=== PATIENT | female | born 1960 | race Caucasian/White ===

== ENCOUNTER 2016-10-16 19:57 | Emergency (ER) | payer BC ==
[2016-10-16 20:07] VITALS: BP 110/70
--- NOTE | 2016-10-16 20:31 | UC ---
Bite Injury/Animal HPI - HPI Summary HPI Summary: Pt presents to the ED through amb triage. Pt states this afternoon was working out side when sustained a bite or sting to the posterior aspect of right knee. Pt states felt like it became swollen and full. Pt denies pain. mild warmth. Pt wondering if wound represents Lyme dx. Pt not immunocompromised Pt states with time edema has improved * - History of Current Complaint Chief Complaint: UCSkin Stated Complaint: INSECT BITE Time Seen by Provider: 10/16/16 20:05 Hx Last Menstrual Period: 10/13/16 ?: No Severity Currently: Mild Severity Initially: Mild Pain Intensity: 0 Onset/Duration: Gradual Onset - Allergies/Home Medications Allergies/Adverse Reactions: Allergies Allergy/AdvReac Type Severity Reaction Status Date / Time Codeine AdvReac Mild makes pain Verified 10/16/16 20:07 worse PMH/Surg Hx/FS Hx/Imm Hx Previously Healthy: Yes - Surgical History Surgical History: Yes Surgery Procedure, Year, and Place: x3; R lower leg; tubal ligation; hernia; LUMBAR SPINE FEB 2014; - Family History Known Family History: Positive: Diabetes - Social History Lives: With Family Alcohol Use: None Substance Use Type: None Smoking Status (MU): Never Smoked Tobacco - Immunization History Most Recent Influenza Vaccination: never Most Recent Tetanus Shot: UTD Most Recent Pneumonia Vaccination: never Review of Systems Skin: Rash All Other Systems Reviewed And Are Negative: Yes Physical Exam Triage Information Reviewed: Yes Appearance: Well-Appearing, No Pain Distress, Well-Nourished Vital Signs: Initial Vital Signs Temp 98 F 10/16/16 20:02 Pulse 58 10/16/16 20:02 Resp 16 10/16/16 20:02 BP 110/70 10/16/16 20:02 Pulse Ox 97 10/16/16 20:02 Eyes: Negative: Discharge ENT: Positive: Hearing grossly normal Neck exam: Normal Neck: Positive: Supple, Nontender, No Lymphadenopathy Respiratory Exam: Normal Respiratory: Positive: Normal breath sounds, No respiratory distress, No accessory muscle use Cardiovascular Exam: Normal Cardiovascular: Positive: RRR, Other: - 2+ popliteal fossa Musculoskeletal Exam: Normal Musculoskeletal: Positive: Other: - ambulatory without difficulty or weakness Full flex/ext knee, ankle + great toe extension Neurological Exam: Normal Neurological: Positive: Alert Psychological Exam: Normal Skin: Positive: Other - right popliteal fossa - pt with small wound c/w insect sting and mild localized edema. mild warmth no erythema no extension to calf no pain Bite Injury Course/Dx - Course Course Of Treatment: Pt with insect wound to right popliteal fossa this afternoon with localized edema. No fb appreciated. d/w pt regarding lyme, tick bite. no current concern for infection. recommend cool pack. elevate. monitor wound for s/s infection. return precautions - Differential Dx/Diagnosis Provider Diagnoses: insect sting with localized edema and warmth. no concern for infection. d/w pt at length regarding lyme disease - no current concern for tick wound or infection. d/w pt wound care s/s infection. elevate. cool packs. elevate Discharge - Discharge Plan Condition: Stable Disposition: HOME Patient Education Materials: Insect Bite or Sting (ED) Referrals: Antonia Soler MD [Primary Care Provider] - Additional Instructions: The doctor that evaluated you today thinks you are have a normal, location reaction to an insect bite or sting. There is nothing on today's exam that is concerning for infection or tick bite. However, you should monitor your wound closely for signs of infection - reddness, red streaking drainage, increased pain ,swelling or fever Okay to apply cool soaks to your wound. Heat may increase swelling and may cause itching Elevate your leg to help with swelling and pain Call your doctor or return with questions or concerns
== END 2016-10-16 20:28 | disposition home or self-care (01) ==
LOC: UCCORT 19:57
DX: S80.261A Insect bite (nonvenomous), right knee, initial encounter (principal); W57.XXXA Bitten or stung by nonvenomous insect and other nonvenomous arthropods, initial encounter; Y93.89 Activity, other specified; Y92.9 Unspecified place or not applicable; Z88.5 Allergy status to narcotic agent
CPT/HCPCS: 99211; G0463

== ENCOUNTER 2017-05-13 07:39 | Emergency (ER) | payer BC ==
[2017-05-13 08:05] VITALS: BP 123/73
--- NOTE | 2017-05-13 08:13 | UC ---
Bite Injury/Animal HPI - HPI Summary HPI Summary: TICK BITE RIGHT UPPER ARM X 1 DAY TICK WAS REMOVED BY THE PT. THIS MORNING NO FEVER, NO CHILLS, NO JOINT PAIN , NO RASH - History of Current Complaint Chief Complaint: UCSkin Stated Complaint: SKIN COMPLAINT - RT ARM Time Seen by Provider: 05/13/17 07:57 Hx Obtained From: Patient Hx Last Menstrual Period: 10/13/16 Severity Currently: Mild Severity Initially: Mild Pain Intensity: 0 Onset/Duration: Gradual Onset, Lasting Days - 1, Still Present Type of Bite: Wild Animal - TICK Has Animal Been Immunized?: N/A Associated Signs And Symptoms: Negative: Fever, Erythema, Drainage, Swelling, Lymphadenopathy, Numbness/Tingling, Limited ROM Animal Available for Observation: Yes Animal Control Notified: No - Allergies/Home Medications Allergies/Adverse Reactions: Allergies Allergy/AdvReac Type Severity Reaction Status Date / Time codeine AdvReac Unknown NOT Verified 05/13/17 07:56 EFFECTIVE PMH/Surg Hx/FS Hx/Imm Hx Previously Healthy: Yes - Surgical History Surgical History: Yes Surgery Procedure, Year, and Place: x3; R lower leg; tubal ligation; hernia; LUMBAR SPINE FEB 2014;. RIGHT LEG REMOVED PART OF ADAMES - Family History Known Family History: Positive: Diabetes - Social History Alcohol Use: None Substance Use Type: None Smoking Status (MU): Never Smoked Tobacco - Immunization History Most Recent Influenza Vaccination: never Most Recent Tetanus Shot: UTD Most Recent Pneumonia Vaccination: never Review of Systems Constitutional: Negative Eyes: Negative ENT: Negative Respiratory: Negative Is Patient Immunocompromised?: No All Other Systems Reviewed And Are Negative: Yes Physical Exam Triage Information Reviewed: Yes Appearance: Well-Appearing, No Pain Distress, Well-Nourished Vital Signs: Initial Vital Signs Temp 98.2 F 05/13/17 07:57 Pulse 72 05/13/17 07:57 Resp 16 05/13/17 07:57 BP 123/73 05/13/17 07:57 Pulse Ox 100 05/13/17 07:57 Vital Signs Reviewed: Yes Eyes: Positive: Conjunctiva Clear ENT: Positive: Normal ENT inspection, Hearing grossly normal, Pharynx normal Neck exam: Normal Neck: Positive: Supple Respiratory: Positive: Chest non-tender, Lungs clear, Normal breath sounds Cardiovascular: Positive: RRR, No Murmur, Pulses Normal Skin: Positive: Other - TICK BITE RIGHT UPPER ARM , TICK WAS REMOVED BY THE PT. MILD ERYTHEMA OF THE TICK SITE Bite Injury Course/Dx - Differential Dx/Diagnosis Provider Diagnoses: TICK BITE RIGHT ARM Discharge - Discharge Plan Condition: Stable Disposition: HOME Prescriptions: DOXYcycline CAP(*) [DOXYcycline 100MG CAP(*)] 200 mg PO DAILY #2 cap Patient Education Materials: Tick Bite (ED) Referrals: Antonia Soler MD [Primary Care Provider] - If Needed
== END 2017-05-13 08:14 | disposition home or self-care (01) ==
LOC: UCCORT 07:39
DX: S40.861A Insect bite (nonvenomous) of right upper arm, initial encounter (principal); W57.XXXA Bitten or stung by nonvenomous insect and other nonvenomous arthropods, initial encounter; Y93.9 Activity, unspecified; Y92.9 Unspecified place or not applicable
CPT/HCPCS: 99212; G0463

== ENCOUNTER 2017-09-22 15:28 | Emergency (ER) | payer BC ==
[2017-09-22 15:44] VITALS: BP 146/83
--- NOTE | 2017-09-22 16:00 | ED ---
Respiratory - History of Current Complaint Chief Complaint: UCBackPain Stated Complaint: BACK PAIN - S/P FALL Hx Obtained From: Patient Onset/Duration: Sudden Onset - left sided rib pain, right sided rib pain Timing: Constant Initial Severity: Severe Current Severity: Moderate Pain Intensity: 6 Sputum Amount: None Aggravating Factor(s): Nothing, Deep Breaths Associated Signs and Symptoms: Pleuritic Chest Pain - Risk Factors Status Asthmaticus Risk Factors: Negative Pulmonary Embolism Risk Factors: Negative Cardiac Risk Factors: Negative - Allergy/Home Medications Allergies/Adverse Reactions: Allergies Allergy/AdvReac Type Severity Reaction Status Date / Time codeine AdvReac Unknown NOT Verified 05/13/17 07:56 EFFECTIVE Home Medications: Home Medications Calcium Carb, Citrate/Vit D3 [Calcium + D3 ER Tablet] 1 each PO DAILY 09/22/17 [ History Confirmed 09/22/17] PMH/Surg Hx/FS Hx/Imm Hx Endocrine/Hematology History: Reports: Hx Anemia - CHRONIC Denies: Hx Diabetes Cardiovascular History: Denies: Hx Hypertension, Hx Pacemaker/ICD Respiratory History: Denies: Hx Asthma History: Denies: Hx Renal Disease Musculoskeletal History: Reports: Hx Arthritis - BILAT THUMBS Sensory History: Reports: Hx Contacts or Glasses - READING GLASSES Denies: Hx Hearing Aid Opthamlomology History: Reports: Hx Contacts or Glasses - READING GLASSES Psychiatric History: Denies: Hx Panic Disorder - Surgical History Surgery Procedure, Year, and Place: x3; R lower leg; tubal ligation; hernia; LUMBAR SPINE FEB 2014;. RIGHT LEG REMOVED PART OF ADAMES Hx Anesthesia Reactions: No - TOOK LONG TIME TO WAKE UP Infectious Disease History: No Infectious Disease History: Reports: History Other Infectious Disease - CHICKEN POX, Traveled Outside the [place] in Last 30 Days - [place] - Family History Known Family History: Positive: Diabetes - Social History Alcohol Use: None Substance Use Type: Reports: None Smoking Status (MU): Never Smoked Tobacco Review of Systems Constitutional: Negative Eyes: Negative ENT: Negative Cardiovascular: Negative Respiratory: Other - left and right pleuritic pain Gastrointestinal: Negative Genitourinary: Negative Musculoskeletal: Other - pain in the left and right chest Skin: Negative Neurological: Negative Psychological: Normal All Other Systems Reviewed And Are Negative: Yes Physical Exam Triage Information Reviewed: Yes Vital Signs On Initial Exam: Initial Vitals Temp Pulse Resp BP Pulse Ox 36.9 C 69 16 146/83 100 09/22/17 15:40 09/22/17 15:40 09/22/17 15:40 09/22/17 15:40 09/22/17 15:40 Vital Signs Reviewed: Yes Appearance: Positive: Well-Appearing Skin: Positive: Warm - no ecchymosis Head/Face: Positive: Normal Head/Face Inspection Eyes: Positive: Normal ENT: Positive: Normal ENT inspection Neck: Positive: Supple Respiratory/Lung Sounds: Positive: Clear to Auscultation Cardiovascular: Positive: Normal Abdomen Description: Positive: Nontender Bowel Sounds: Positive: Present Neurological: Positive: Normal Diagnostics - Vital Signs Vital Signs Temp Pulse Resp BP Pulse Ox 09/22/17 15:40 36.9 C 69 16 146/83 100 - Laboratory Lab Statement: Any lab studies that have been ordered have been reviewed, and results considered in the medical decision making process. Disposition - Course Course Of Treatment: left and right chest trauma - Diagnoses Provider Diagnoses: Rib injury During the Visit The Following Alert/Code Occurred: Trauma Is Visit Related: No Discharge - Sign-Out/Discharge Documenting (check all that apply): Patient Departure - Discharge Plan Condition: Good Disposition: HOME Patient Education Materials: Rib Fracture (ED) Referrals: Antonia Soler MD [Primary Care Provider] - - Billing Disposition and Condition Condition: GOOD Disposition: Home
--- NOTE | 2017-09-22 16:25 | RAD ---
INDICATION: Bilateral rib pain COMPARISON: None TECHNIQUE: Multiple views of the ribs were obtained. FINDINGS: Bones: There is no evidence of acute rib fracture. LUNGS: The lungs are clear. There is no pneumothorax. Pleural spaces: There is no evidence of hemothorax. Other: None IMPRESSION: NO ACUTE RIB FRACTURE.
== END 2017-09-22 17:04 | disposition home or self-care (01) ==
LOC: UCCORT 15:28
DX: S29.9XXA Unspecified injury of thorax, initial encounter (principal); W18.00XA Striking against unspecified object with subsequent fall, initial encounter; Y93.9 Activity, unspecified; Y92.9 Unspecified place or not applicable; Z88.5 Allergy status to narcotic agent; Z83.3 Family history of diabetes mellitus
CPT/HCPCS: 71111; 99201; G0463

== ENCOUNTER 2017-10-21 20:52 | Emergency (ER) | payer BC ==
--- OUTSIDE RECORDS SUMMARY | 2017-10-21 21:08 | XMS REPORT ---
:[address] [facility] Address [address] [place] [address] Care Team Providers Name Role Phone Narda Echeverria Unavailable Unavailable PROBLEMS Type Condition ICD9-CM Code [id number] Onset Condition SNOMED Code Code Dates Status Problem Abnormal findings R93.8 Active 130038092 on diagnostic imaging of other specified body structures Problem Deep dyspareunia N94.12 Active 468665900 Problem Irregular N92.6 Active 13181914 menstruation, unspecified Problem Postmenopausal N95.0 Active 11847169 bleeding Problem Leiomyoma of D25.9 Active 51185571 uterus, unspecified ALLERGIES Substance Reaction Event Type Date Status codeine doesn't work Drug Allergy Oct, Active ENCOUNTERS Encounter Location Date Diagnosis [facility] [address] Oct, OBGYN [place], [place] [id number] [facility] Oct, Leiomyoma of uterus, OBGYN [facility], unspecified D25.9 ; [place] [id number] Abnormal findings on diagnostic imaging of other specified body structures R93.8 and Encounter for screening mammogram for malignant neoplasm of breast Z12.31 [facility] 103 Oct, Leiomyoma of uterus, OBGYN [facility], unspecified D25.9 and [place] [id number] Postmenopausal bleeding N95.0 [facility] 103 Jun, Postmenopausal bleeding OBN [facility], N95.0 ; Leiomyoma of [place] [id number] uterus, unspecified D25.9 and Abnormal findings on diagnostic imaging of other specified body structures R93.8 [facility] 103 Jun, Postmenopausal bleeding OBN [facility], N95.0 ; Deep dyspareunia [place] [id number] N94.12 and Leiomyoma of uterus, unspecified D25.9 [facility] [address] Nov, OBGYN [place], [place] [id number] [facility] 103 Nov, Postmenopausal bleeding OBN [facility], N95.0 ; [place]omy[place] [id number] uterus, unspecified D25.9 and Deep dyspareunia N94.12 [facility] 103 Aug, Hematuria, unspecified OBGYN [facility], R31.9 [place] [id number] [facility] [address] Aug, OBGYN [place] [id number] [facility] 103 Aug, Postmenopausal bleeding OBN [facility], N95.0 ; [place]omy[place] [id number] uterus, unspecified D25.9 and Deep dyspareunia N94.12 [facility] [address], July, [facility] [place] [id number] [facility] [address] July, OBGYN [place] [id number] [facility] [address] July, Postmenopausal bleeding OBN [facility], N95.0 ; [place] [id number] uterus, unspecified D25.9 and Deep dyspareunia N94.12 [facility] [address] Jun, OBGYN [place], [place] [id number] [facility] 103 Jun, Postmenopausal bleeding OBN [facility], N95.0 ; [place] [id number] uterus, unspecified D25.9 and Deep dyspareunia N94.12 [facility] [address] May, [place]BGYN [place], [place] [id number] [facility] 103 May, Irregular menstruation, OBGYN [facility], unspecified N92.6 [place] [id number] [facility] [address] [facility] May, Irregular menstruation , [address] [place], unspecified N92.6 [place] [id number] [facility] [address] May, Irregular menstruation, OBGYN [facility], unspecified N92.6 ; [place] [id number] Abnormal findings on diagnostic imaging of other specified body structures R93.8 and Superficial (introital) dyspareunia N94.11 [facility] 103 May, OBGYN [place], [place] [id number] [facility] 103 May, Irregular menstruation, OBGYN [facility], unspecified N92.6 ; [place] [id number] Superficial (introital) dyspareunia N94.11 and Abnormal findings on diagnostic imaging of other specified body structures R93.8 [facility] 103 Feb, OBGYN [place], [place] [id number] [facility] 103 Feb, [place]BGYN [place] [id number] [facility] 103 Jan, [place] [id number] [facility] Dec, [place] [id number] [facility] 103 Dec, [place] [id number] [facility] [address] [place], Dec, [place] [id number] [facility] 103 Dec, FAMILY PLANNING V25.09 [place]BGYN [place] [id number] [facility] 103 Nov, FAMILY PLANNING V25.09 and OBGYN [facility], PELVIC PAIN 625.9 [place] [id number] [place] [facility] 103 Nov, FAMILY PLANNING V25.09 [place]BGYN [place] [id number] [facility] 103 Oct, FAMILY PLANNING V25.09 [place]BGYN [place] [id number] IMMUNIZATIONS No Known Immunizations SOCIAL HISTORY Never Assessed REASON FOR REFERRAL FUNCTIONAL STATUS PLAN OF CARE Activity Details Follow Up 6 Months annual, screening mammo Reason: Pending Test Mammogram, Routine Screening - bilateral VITAL SIGNS Height 62 in 2017-10-19 Weight 174 lbs 2017-10-19 BMI 31.82 kg/m2 2017-10-19 Blood pressure systolic 126 mm Hg 2017-10-19 Blood pressure diastolic 72 mm Hg 2017-10-19 MEDICATIONS Medication Instructions Dosage Frequency Start End Duration Status Date Date Vitamin D3 23302 orally once a 1 cap(s) Active intl units week vitamin E 200 orally once a 1 cap(s) 24h Active intl units day iron Active multivitamin as directed Active calcium 500 mg orally 3 x per Active week PROCEDURES No Known procedures RESULTS No Results REASON FOR VISIT u/s f/u MEDICAL (GENERAL) HISTORY Type Description Date Medical History anemia Medical History Asthma Medical History Anxiety Surgical History benign tumor removed right feliciano 1979 Surgical History post op laparoscopic bilateral partial salpingectomy 2007 Surgical History laproscopic surgery with mesh with Dr. Zhong ? Surgical History Hysteroscopy/D&C/myomectomy: benign EM tissue and 08-06-16 leiomyoma Hospitalization History see above
[2017-10-21 21:13] VITALS: BP 146/91
--- NOTE | 2017-10-21 22:04 | UC ---
Truncal Trauma HPI - HPI Summary HPI Summary: fall onto right side with arm caught under chest wall on 10/17/17. Pain not remitting and is disrupting sleep, hard to breathe. Has not used analgesics as she dislikes taking meds. - History Of Current Complaint Chief Complaint: UCTrauma Stated Complaint: RIGHT SIDED RIB PAIN Time Seen by Provider: 10/21/17 21:53 Hx Obtained From: Patient Hx Last Menstrual Period: 10/13/16 Onset/Duration: Sudden Onset Severity Initially: Moderate Severity Currently: Moderate Pain Intensity: 7 Mechanism Of Injury: Blunt Trauma Aggravating Factor(s): Movement, Deep Breathing, Cough Alleviating factor(s): Rest Associated Signs And Symptoms: Positive: SOB, Chest Pain - Allergies/Home Medications Allergies/Adverse Reactions: Allergies Allergy/AdvReac Type Severity Reaction Status Date / Time codeine AdvReac Unknown NOT Verified 10/21/17 21:13 EFFECTIVE Home Medications: Home Medications Cholecalciferol (Vitamin D3) [Vitamin D3] 1,000 unit PO DAILY 10/21/17 [History Confirmed 10/21/17] PMH/Surg Hx/FS Hx/Imm Hx Previously Healthy: Yes - overweight - Surgical History Surgical History: Yes Surgery Procedure, Year, and Place: x3; R lower leg; tubal ligation; hernia; LUMBAR SPINE FEB 2014;. RIGHT LEG REMOVED PART OF ADAMES - Family History Known Family History: Positive: Diabetes - Social History Occupation: Employed Full-time Lives: With Family Alcohol Use: None Substance Use Type: None Smoking Status (MU): Never Smoked Tobacco - Immunization History Most Recent Influenza Vaccination: never Most Recent Tetanus Shot: UTD Most Recent Pneumonia Vaccination: never Review of Systems Constitutional: Negative Skin: Negative Eyes: Negative ENT: Negative Respiratory: Shortness Of Breath Cardiovascular: Chest Pain Gastrointestinal: Negative Genitourinary: Negative Motor: Negative Neurovascular: Negative Musculoskeletal: Negative Neurological: Negative Psychological: Negative Is Patient Immunocompromised?: No All Other Systems Reviewed And Are Negative: Yes Physical Exam Triage Information Reviewed: Yes Appearance: Well-Appearing, Pain Distress - mild to moderate Vital Signs: Initial Vital Signs Temp 98.1 F 10/21/17 21:09 Pulse 74 10/21/17 21:09 Resp 16 10/21/17 21:09 BP 146/91 10/21/17 21:09 Pulse Ox 97 10/21/17 21:09 Vital Signs Reviewed: Yes ENT: Positive: Pharynx normal Neck: Positive: Supple, Nontender, No Lymphadenopathy Respiratory Exam: Other - tenderness right anterior chest wall, costal margin intact. Respiratory: Positive: Lungs clear, Normal breath sounds Cardiovascular: Positive: RRR, No Murmur Musculoskeletal Exam: Normal Neurological Exam: Normal Psychological Exam: Normal Skin Exam: Normal Diagnostics - Laboratory Diagnostic Studies Completed/Ordered: rib views reviewed by , no fracture seen. Pending radiology read. Truncal Trauma Course/Dx - Course Course Of Treatment: chest wall pain. - Differential Dx/Diagnosis Differential Diagnosis/HQI/PQRI: Chest Wall Contusion Provider Diagnoses: chest wall pain (pending final radiology read) Discharge - Sign-Out/Discharge Documenting (check all that apply): Post-Discharge Follow Up - Discharge Plan Condition: Stable Disposition: HOME Patient Education Materials: Chest Wall Pain (ED) Referrals: Maggie Leonard MD [Primary Care Provider] - Additional Instructions: As reviewed, no fracture was seen by my assessment. The films will be read by a radiologist in the morning and you will be notified if a fracture is seen. You can use acetaminophen or ibuprofen for control of pain. - Billing Disposition and Condition Condition: STABLE Disposition: Home
--- NOTE | 2017-10-22 07:40 | RAD ---
Indication: Right rib injury. 3 views of the right ribs demonstrate no fracture. No dislocation is identified. No pneumothorax is noted. Dual-energy PA views of the chest are unremarkable. IMPRESSION: No fracture of the right ribs is noted. R0
== END 2017-10-21 22:56 | disposition home or self-care (01) ==
LOC: UCCORT 20:52
DX: R07.89 Other chest pain (principal); W19.XXXA Unspecified fall, initial encounter; Y93.9 Activity, unspecified; Y92.9 Unspecified place or not applicable; Y99.9 Unspecified external cause status; Z88.5 Allergy status to narcotic agent
CPT/HCPCS: 99211; G0463

== ENCOUNTER 2018-01-19 15:41 | Emergency (ER) | payer BC ==
[2018-01-19 16:15] VITALS: BP 132/84
--- NOTE | 2018-01-19 16:28 | UC ---
UC General HPI - HPI Summary HPI Summary: PT IS C/O A 2 WEEK HX OF INCREASING PAIN "UNDER MY BELLY FLAP". C/O MORE PAIN WHEN BLADDER IS FULL. DENIES NAUSEA, VOMITING AND DIARRHEA. C/O SOME CONSTIPATION, DESCRIBES THIS STAINING WITH BOWEL MOVEMENTS AND COMES OUT A SOFT THIN STRIP. ADMITS TO ABDOMINAL DISTENSION. NO CHANGE WITH MEALS. NO DYSURIA. LAST PM SO SEVERE THAT "ALMOST WENT TO THE ER". - History of Current Complaint Chief Complaint: UCLowerExtremity Stated Complaint: LOWER LEFT GROIN PAIN Time Seen by Provider: 01/19/18 16:15 Hx Obtained From: Patient Hx Last Menstrual Period: 10/13/16 Onset/Duration: Gradual Onset Timing: Constant Pain Intensity: 7 Aggravating: FULL BLADDER AND MOVEMENT Associated Signs & Symptoms: Positive: Abdominal Pain. Negative: Diarrhea, Fever, Nausea, Vomiting - Allergy/Home Medications Allergies/Adverse Reactions: Allergies Allergy/AdvReac Type Severity Reaction Status Date / Time codeine AdvReac Unknown NOT Verified 01/19/18 16:15 EFFECTIVE Home Medications: Home Medications Aspirin 325 mg PO DAILY 01/19/18 [History Confirmed 01/19/18] PMH/Surg Hx/FS Hx/Imm Hx Previously Healthy: Yes - Surgical History Surgical History: Yes Surgery Procedure, Year, and Place: x3; R lower leg; tubal ligation; hernia; LUMBAR SPINE FEB 2014;. RIGHT LEG REMOVED PART OF ADAMES - Family History Known Family History: Positive: Diabetes, Other - DIVERTICULAR DISEASE - Social History Occupation: Employed Full-time Alcohol Use: None Substance Use Type: None Smoking Status (MU): Never Smoked Tobacco - Immunization History Most Recent Influenza Vaccination: never Most Recent Tetanus Shot: UTD Most Recent Pneumonia Vaccination: never Vaccination Up to Date: Yes Review of Systems Constitutional: Negative Skin: Negative Eyes: Negative ENT: Negative Respiratory: Negative Cardiovascular: Negative Gastrointestinal: Abdominal Pain Genitourinary: Negative Motor: Negative Neurovascular: Negative Musculoskeletal: Negative Neurological: Negative Psychological: Negative Is Patient Immunocompromised?: No All Other Systems Reviewed And Are Negative: Yes Physical Exam Triage Information Reviewed: Yes Appearance: Well-Appearing Vital Signs: Initial Vital Signs Temp 97.9 F 01/19/18 16:10 Pulse 74 01/19/18 16:10 Resp 16 01/19/18 16:10 BP 132/84 01/19/18 16:10 Pulse Ox 99 01/19/18 16:10 Vital Signs Reviewed: Yes Eyes: Positive: Conjunctiva Clear ENT: Positive: Pharynx normal, TMs normal. Negative: Nasal congestion, Nasal drainage Neck: Positive: Supple, Nontender, No Lymphadenopathy Respiratory: Positive: Lungs clear, Normal breath sounds Cardiovascular: Positive: RRR Abdomen Description: Positive: Other: - SCAR RLQ. MILD DISTENSION LOWER ABDOMEN. TENDER ACROSS LOWER ABDOMEN WITH GUARDING ON DEEP PALPATION AND MILD REBOUND TENDERNESS. NO MASS OR HSM APPRECIATED. Musculoskeletal: Positive: ROM Intact Neurological: Positive: Alert Psychological: Positive: Age Appropriate Behavior Skin Exam: Normal Course/Dx - Course Course Of Treatment: THE DIFFERENTIAL FOR LOWER ABDOMINAL PAIN WITH PERITONEAL SIGNS INCLUDES THE POSSIBLITY OF BOWEL, BLADDER AND PNEUMATIC JACK OPERATOR PATHOLOGY. PT REQUIRES HIGHER LEVEL OF CARE/EVALUATION. SHE AGREES TO ER TRANSFER BUT DECLINED EMS TO THE [facility] ER. [facility] ER CALLED, REPORT OF 57 YO FEMAL WITH LOW ABDOMINAL PAIN AND PERITONEL SIGNS GIVEN TO DR BRAVO. - Differential Dx - Multi-Symptom Provider Diagnoses: ABDOMINAL PAIN Discharge - Sign-Out/Discharge Documenting (check all that apply): Patient Departure All imaging exams completed and their final reports reviewed: No Studies - Discharge Plan Condition: Stable Disposition: TRANS HIGHER LVL OF CARE FAC Referrals: Maggie Leonard MD [Primary Care Provider] - Additional Instructions: LEAVE HERE AND GO DIRECTLY TO THE [facility] [place] ER DISCUSSED - Billing Disposition and Condition Condition: STABLE Disposition: Trans Higher Lvl of Care Fac
== END 2018-01-19 16:45 | disposition short-term general hospital (02) ==
LOC: UCCORT 15:41
DX: R10.9 Unspecified abdominal pain (principal); Z88.5 Allergy status to narcotic agent; Z79.82 Long term (current) use of aspirin
CPT/HCPCS: 99212; G0463

== ENCOUNTER 2018-07-06 16:10 | Emergency (ER) | payer BC ==
[2018-07-06 17:21] VITALS: BP 143/91
--- NOTE | 2018-07-06 18:43 | ED ---
Bite Injury/Animal - HPI Summary HPI Summary: 57 yr old female with the complaint of cat bite to the right forearm. Onset of symptoms this morning. She was bitten by her household cat, and also states her shots are up to date regarding tetanus. Her cats shots are up to date as well regarding rabies per the patient. She has no other complaints. She is on zithromax for left OM. She has allergies to amoxicillin and gets a rash, and NVD. - History of Current Complaint Chief Complaint: UCBiteInjury Stated Complaint: CAT BITE LEFT WRIST Time Seen by Provider: 07/06/18 18:13 Hx Last Menstrual Period: 10/13/16 Pain Intensity: 1 - Allergies/Home Medications Allergies/Adverse Reactions: Allergies Allergy/AdvReac Type Severity Reaction Status Date / Time amoxicillin Allergy Severe GI Upset Verified 07/06/18 17:15 codeine AdvReac Unknown NOT Verified 07/06/18 17:15 EFFECTIVE Home Medications: Home Medications Azithromycin TAB* [Zithromax TAB (Z-CHARISSE) 250 mg #6 tabs] 1 tab DAILY 07/06/18 [ History Confirmed 07/06/18] PMH/Surg Hx/FS Hx/Imm Hx Endocrine/Hematology History: Reports: Hx Anemia - CHRONIC Denies: Hx Diabetes Cardiovascular History: Denies: Hx Hypertension, Hx Pacemaker/ICD Respiratory History: Denies: Hx Asthma History: Denies: Hx Renal Disease Musculoskeletal History: Reports: Hx Arthritis - BILAT THUMBS Sensory History: Reports: Hx Contacts or Glasses - READING GLASSES Denies: Hx Hearing Aid Opthamlomology History: Reports: Hx Contacts or Glasses - READING GLASSES Psychiatric History: Denies: Hx Panic Disorder - Cancer History Hx Chemotherapy: No Hx Radiation Therapy: No - Surgical History Surgery Procedure, Year, and Place: x3; R lower leg; tubal ligation; hernia; LUMBAR SPINE FEB 2014;. RIGHT LEG REMOVED PART OF ADAMES Hx Anesthesia Reactions: No - TOOK LONG TIME TO WAKE UP Infectious Disease History: No Infectious Disease History: Reports: History Other Infectious Disease - CHICKEN POX Denies: Traveled Outside the [place] in Last 30 Days - Family History Known Family History: Positive: Diabetes, Other - DIVERTICULAR DISEASE - Social History Occupation: Employed Full-time Alcohol Use: None Substance Use Type: Reports: None Smoking Status (MU): Never Smoked Tobacco Review of Systems Constitutional: Negative Positive: Other - cat bite to the right forearm. All Other Systems Reviewed And Are Negative: Yes Physical Exam Triage Information Reviewed: Yes Vital Signs On Initial Exam: Initial Vitals Temp Pulse Resp BP Pulse Ox 98.7 F 67 16 143/91 99 07/06/18 17:16 07/06/18 17:16 07/06/18 17:16 07/06/18 17:16 07/06/18 17:16 Vital Signs Reviewed: Yes Appearance: Positive: Well-Appearing, No Pain Distress Skin: Positive: Other - two puncture wounds to the right forearm with localized swelling and slight erythema. Eyes: Positive: Normal, EOMI ENT: Positive: Normal ENT inspection Neck: Positive: Nontender Respiratory/Lung Sounds: Positive: Clear to Auscultation, Breath Sounds Present Cardiovascular: Positive: RRR. Negative: Murmur Abdomen Description: Negative: Distended Musculoskeletal: Positive: Strength/ROM Intact Neurological: Positive: Sensory/Motor Intact, Alert, Oriented to Person Place, Time, CN Intact II-III Psychiatric: Positive: Normal - [place] Coma Scale Best Eye Response: 4 - Spontaneous Best Motor Response: 6 - Obeys Commands Best Verbal Response: 5 - Oriented Coma Scale Total: 15 Diagnostics - Vital Signs Vital Signs Temp Pulse Resp BP Pulse Ox 07/06/18 17:16 98.7 F 67 16 143/91 99 - Laboratory Lab Statement: Any lab studies that have been ordered have been reviewed, and results considered in the medical decision making process. - Radiology xray left wrist Radiology Interpretation Completed By: ED Physician - NAD, no FB. Bite Injury Course/Dx - Course Course Of Treatment: 57 yr old female with cat bite and early signs of infection. Rx with doxy and clinda as recommended on Up to date. The patient has allery to amoxicillin. FU with PMD. Xray neg for FB. - Diagnoses Provider Diagnosis: Cat bite of left forearm with infection, Hypertension Discharge - Sign-Out/Discharge Documenting (check all that apply): Patient Departure All imaging exams completed and their final reports reviewed: No - Discharge Plan Condition: Good Disposition: HOME Prescriptions: Clindamycin Cap(NF) [Clindamycin Cap 300 mg Cap(NF)] 300 mg PO TID #30 cap DOXYcycline CAP(*) [DOXYcycline 100MG CAP(*)] 100 mg PO BID #20 cap Patient Education Materials: Animal Bite (ED), Hypertension (ED) Referrals: Aisha,Maggie, MD [Primary Care Provider] - 2 Days - Billing Disposition and Condition Condition: GOOD Disposition: Home
[2018-07-06] MEDS ORDERED: DOXYcycline CAP(*) 100 MG PO ONE (18:54)
[2018-07-06] MEDS ORDERED: Clindamycin CAP* 150 MG PO ONE (18:54)
--- NOTE | 2018-07-07 13:42 | UC ---
- Progress Note Progress Note: Patient Name: GERONIMO JAVIER Medical Record#: [id number] Ordering Physician: Albert Merrill MD Acct.#: [id number] : 1960 Age: 57 Sex: F Location: [facility] Exam Date: 07/06/181827 ADM Status: [facility] ER Order Information: WRIST RIGHT 2 VWS Accession Number: [id number] CPT: 47198 INDICATION: Cat bite to RIGHT forearm. COMPARISON: No relevant prior exams available on the [facility] PACS for comparison. TECHNIQUE: AP and lateral views RIGHT wrist. REPORT: Soft tissue swelling greatest over the distal volar and radial aspect. No conspicuous foreign body or subcutaneous emphysema. Negative for fracture or malalignment. Basal joint osteoarthritis. IMPRESSION: #. Soft tissue swelling without additional acute finding. R0 Preliminary Imaging Read R0 <Electronically signed by Albert Erazo MD in OV> 07/07/18748 Dictated By: Albert Erazo MD Dictated Date/Time: 07/07/18748 Transcribed Date/Time: 07/07/18747 Copy to: CC:Maggie Leonard MD; Albert Merrill MD Imaging - [facility] [address] [address] ph ([phone]) ph ([phone]) ph ([phone]) This report is only to be considered final once signed by the Provider(s) as displayed in the "<Electronically Signed by >" field (s). Absence of a signature indicates the report is in a draft status and still needs to be finalized. In the event this document was created by someone other than the signing Provider, the individual initiating the document will be listed in the "Entered by:" or "Dictated by:" [email or web address]. 1 of 1 Course/Dx - Diagnoses Provider Diagnoses: Cat bite of left forearm with infection, Hypertension Discharge - Sign-Out/Discharge Documenting (check all that apply): Post-Discharge Follow Up All imaging exams completed and their final reports reviewed: Yes - Discharge Plan Condition: Good Disposition: HOME Prescriptions: Clindamycin Cap(NF) [Clindamycin Cap 300 mg Cap(NF)] 300 mg PO TID #30 cap DOXYcycline CAP(*) [DOXYcycline 100MG CAP(*)] 100 mg PO BID #20 cap Patient Education Materials: Animal Bite (ED), Hypertension (ED) Referrals: Maggie Leonard MD [Primary Care Provider] - 2 Days - Billing Disposition and Condition Condition: GOOD Disposition: Home
== END 2018-07-06 19:06 | disposition home or self-care (01) ==
LOC: UCCORT 16:10
DX: S51.852A Open bite of left forearm, initial encounter (principal); I10 Essential (primary) hypertension; L08.9 Local infection of the skin and subcutaneous tissue, unspecified; Z88.0 Allergy status to penicillin; Z88.5 Allergy status to narcotic agent; W55.01XA Bitten by cat, initial encounter; Y92.9 Unspecified place or not applicable
CPT/HCPCS: 99212; A9270-GY; G0463

== ENCOUNTER 2018-11-20 11:59 | Emergency (ER) | payer BC ==
--- OUTSIDE RECORDS SUMMARY | 2018-11-20 12:21 | XMS REPORT | Continuity of Care Document ---
:1960 External Reference #:[id number] Author Name Ada Red, MS, [employer] PLANNING AIDE-C, CNM (transmitted by agent of provider Maggie Leonard) Address [address] [place] [address] Care Team Providers Name Role Phone Maggie Leonard MD - Internal Medicine Care Team Information Security Tester Wilder Carlson MD - Neurological Care Team Information Security Tester [phone] Surgery Problems Active Problems Provider Date Neck pain Wilder Al MD, FACS Onset: 09/07/2012 Disorder of bursa of shoulder region Wilder Al MD, FACS Onset: 09/07 Enthesopathy Wilder Al MD, FACS Onset: 09/07/2012 Displacement of cervical Wilder Al MD, 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 Cervical spondylosis without Wilder Al MD, FACS Onset: 09/07/2012 myelopathy Low back pain Wilder Al MD, FACS Onset: 11/24/2012 Sciatica Wilder Al MD, FACS Onset: 11/24/2012 Acquired spondylolisthesis Wilder Al MD, FACS Onset: 11/24/2012 Palpitations Manas Wolff M.D., Onset: 07/20/2013 [facility] Arthralgia of the pelvic region and Manas Wolff M.D., Onset: 2013 thigh [facility] Social History Type Date Description Comments Sex Unknown Tobacco Use Start: Unknown Never Smoked Cigarettes Smokeless Tobacco Never Used Smokeless Tobacco ETOH Use Denies alcohol use Tobacco Use Start: Unknown Patient denies history of smoking Recreational Drug Use Denies Drug Use Smoking Status Reviewed: 10/10/18 Patient denies history of smoking Allergies, Adverse Reactions, Alerts Active Allergies Reaction Severity Comments Date Codeine 12/01/2011 Amoxicillin vomiting,diarrhea,rash 07/05/2018 Inactive Allergies NKDA 11/26/2011 Medications Active Medications SIG Qnty Indications Ordering Provider Date Multivitamin Adult 1 by mouth Unknown every day Tablets Calcium 1 by mouth Unknown 600mg Tablets daily Iron 1 daily Unknown Tablets Vitamin D3 1 by mouth 90caps Unknown 2000Unit every day Capsules History Medications Fluticasone 1 spray each 16gm H66.92 Maggie Leonard, 07/08/2018 - Propionate nostril twice a MD 07/19/2018 50mcg/Act day as needed Suspension Azithromycin take 2 tablets 6tabs Maggie Leonard, 07/05/2018 - 250mg the first day 07/08/2018 Tablets and then 1 tablet for next 4 days orally Amoxicillin 1 tab by mouth 20tabs H66.92 Maggie Leonard, 07/04/2018 - 875mg twice a day 07/08/2018 Tablets Immunizations Description No Information Available Vital Signs Date Vital Result Comment 10/10/2018 3:34pm BP Systolic Sitting Left Arm 128 mmHg BP Diastolic Sitting Left Arm 68 mmHg Body Temperature 98.0 F Heart Rate 78 /min Respiratory Rate 20 /min Height 62.5 inches 5'2.50" Weight 168.00 lb BMI (Body Mass Index) 30.2 kg/m2 BSA (Body Surface Area) 1.79 m2 [place] body weight in kilograms 51 kg O2 % BldC Oximetry 97 % 09/23/2018 8:26am BP Systolic 158 mmHg BP Diastolic 96 mmHg Body Temperature 98.9 F Heart Rate 63 /min Height 62.5 inches 5'2.50" Weight 168.00 lb BMI (Body Mass Index) 30.2 kg/m2 BSA (Body Surface Area) 1.79 m2 [place] body weight in kilograms 51 kg O2 % BldC Oximetry 96 % Results Test Date Facility Test Result H/L Range Note CBC 10/03/2018 [facility] White Blood 7.1 K/uL Normal 3.1-10.7 1 W/Automated [address] [place] [address] [phone] Red Blood Count 4.67 M/uL Normal 3.90-5.40 Hemoglobin 13.3 gm/dL Normal 11.6-15.8 Hematocrit 39.7 % Normal 36.0-46.1 Mean Cell Volume 85.0 fl Normal 80.9-99.0 Mean Corpuscular HGB 28.5 pg Normal 25.9-32.7 Mean Corpuscular HGB Conc 33.5 g/dL Normal 30.8-34.3 Platelet Count 249 K/uL Normal 155-360 Red Cell Distri Width SD 36.7 fl Normal 36-47 Red Cell Distri Width %CV 12.0 % Normal 11.7-14.4 Mean Platelet Volume 10.5 fl Normal 8.9-12.4 Neut% 69.8 % Normal 40.4-72.8 Lymph % 21.6 % Normal 20.0-42.0 [place] % 5.9 % Normal 4.3-13.2 Eo% 1.8 % Normal 0.0-6.6 Bas% 0.6 % Normal 0.0-1.1 Immature Grans 0.3 % Normal 0.0-5.0 NRBC % 0.0 /100WBC < 10/ 100 WBC Neut# 4.94 K/uL Normal 1.8-7.0 Lymph # 1.53 K/uL Normal 1.0-4.0 [place] # 0.42 K/uL Normal 0.3-0.9 Eos # 0.13 K/uL Normal 0.0-0.5 Baso # 0.04 K/uL Normal 0.0-0.1 Immature Grans Absolute 0.02 K/uL NRBC # 0.00 K/uL Comprehensive 10/03/2018 [facility] Glucose 95 mg/dL Normal 74-106 Metabolic Panel [address] [place] [address] [phone] BUN 13 mg/dL Normal 7-18 Creatinine 0.8 mg/dL Normal 0.6-1.3 Glom Filtration Rate, Estimate >60 mL/min >60 If >60 mL/min >60 2 BUN/Creat 16.2 ratio Sodium 139 mmol/L Normal 136-145 Potassium 3.3 mmol/L Low 3.5-5.1 Chloride 105 mmol/L Normal 98-107 Carbon Dioxide 29 mmol/L Normal 21-32 Anion Gap 5 mEq/L Low 8-16 Calcium 8.5 mg/dL Normal 8.5-10.1 Total Protein 7.3 g/dL Normal 6.4-8.2 Albumin 3.6 g/dL Normal 3.4-5.0 Globulin 3.7 g/dL Normal 1.9-4.3 Alb/Glob 1.0 ratio Bilirubin,Total 1.0 mg/dL Normal 0.2-1.0 Sgot/Ast 25 U/L Normal 15-37 SGPT/Alt 31 U/L Normal 12-78 Alkaline Phosphatase 93 U/L Normal 45-117 LDL Cholesterol Profile 10/03/2018 [facility] Cholesterol 159 mg/dL <[address] [place] [address] [phone] Triglycerides 181 mg/dL High <150 4 HDL Cholesterol 45 mg/dL >40 5 LDL-Cholesterol 78 mg/dL < 100 6 Glycohemoglobin 10/03/2018 [facility] Glycohemoglobin 5.7 % Normal 4.2-6.[address] (A1c) [place] [address] [phone] eAG 117 mg/dL Laboratory test 10/03/2018 [facility] Vitamin 55.3 30.0-100.0 [address] D,25-Hydroxy ng/[place] [address] [phone] Lyme Igg & Igm 07/27/2018 [facility] Lyme AB Igg By . 9 By Western Blot [address] [place] [address] [phone] P93 AB Absent . P66 AB Absent . P58 AB Absent . P45 AB Absent . P41 AB Absent . P39 AB Absent . P30 AB Absent . P28 AB Absent . P23 AB Absent . P18 AB Absent . Lyme Igg WB Interpretation Negative . 10 Lyme AB Igm By Western Blot . P41 AB Absent . P39 AB Absent . P23 AB Absent . Lyme Igm WB Interpretation Negative . 11 TSH Reflex 07/27/2018 [facility] Thyroid Stim 1.21 uIU/mL Normal 0.30-4.20 FT4 And/Or [address] [place] [place] FT3 [place] [address] [phone] Reflex add FT3? Y Reflex add FT4? Y Laboratory test 07/27/2018 [facility] Vitamin 68.7 30.0-100.0 12 finding [address] D,25-Hydroxy ng/[place] [address] [phone] Laboratory test 05/05/2018 [facility] Haptoglobin 117 mg/dL 34-200 13 finding [address] [place] [address] [phone] LDH Isoenzyme 05/05/2018 [facility] LDH,Total 172 IU/L 119-226 Panel [address] [place] [address] [phone] (LDH) Fraction 1 22 % 17-32 (LDH) Fraction 2 33 % 25-40 (LDH) Fraction 3 22 % 17-27 (LDH) Fraction 4 10 % 5-13 (LDH) Fraction 5 13.0 % 4-20 Laboratory test 05/05/2018 [facility] Ferritin 55 ng/mL Normal 8-252 finding [address] [place] [address] [phone] Iron-Tibc-%Sat 05/05/2018 [facility] Serum Iron 88 g/dL Normal 50-170 [address] [place] [address] [phone] Total Iron Binding Capacity 318 g/dL Normal 250-450 Transferrin %Saturation 28 % Normal 12-57 Celiac Disease 05/05/2018 [facility] Immunoglobulin A 162 mg/dL 87-352 Comp AB Profile [address] [place] [address] [phone] Antigliadin Abs, IgG 2 units 0-19 14 Antigliadin Abs, IgA 4 units 0-19 15 Endomysial IgA Antibody Negative Negative t-Transglutaminase IgA <2 U/mL 0-3 16 t-Transglutaminase IgG 3 U/mL 0-5 17 Protein 05/05/2018 [facility] Protein,Total,Serum 6.9 g/dL 6.0-8.5 Electro.,S [address] [place] [address] [phone] Albumin 3.8 g/dL 2.9-4.4 Abmeb-1-Ctloalnq 0.2 g/dL 0.0-0.4 Ixocw-8-Mauswxts 0.6 g/dL 0.4-1.0 Beta Globulin 1.0 g/dL 0.7-1.3 Gamma Globulin 1.3 g/dL 0.4-1.8 M-Graham Not Observed g/dL Not Observed Globulin, Total 3.1 g/dL 2.2-3.9 A/G Ratio 1.2 0.7-1.7 Please Note: (SEE NOTE) 18 P E Interpretation, Serum (SEE NOTE) 19 Laboratory test 05/05/2018 [facility] Anti-Nuclear Negative Negative finding [address] Antibodies AU/[place] [address] Direct [phone] Actin (Smooth Muscle) Antibody 6 units 0-19 20 Mitochondrial (M2) Antibodies <20.0 units 0.0-20.0 21 Ryayx-4-Bnsqrjtwplu,Serum 118 mg/dL 90-200 22 Ceruloplasmin 22.5 mg/dL 19.0-39.0 1 NODX 2 Note: Persistent reduction for 3 months or more in an eGFR <60 mL/min/1.73 m2 defines CKD. Patients with eGFR values >/=60 mL/min/1.73 m2 may also have CKD if evidence of persistent proteinuria is present. The original MDRD equation for estimated GFR is not valid for patients less than 18 years of age. Additional information may be found at www.kdoqi.org. 3 Reference Guidelines*: Desirable: ........... < 200 mg/dL Borderline High: ..... 200-239 mg/dL High: ................ >= 240 mg/dL * The National Cholesterol Education Program (NCEP) 4 Reference Guidelines*: Normal: ............. < 150 mg/dL Borderline High: .... 150-199 mg/dL High: ............... 200-499 mg/dL Very High: .......... > 500 mg/dL * Source: National Cholesterol Education Program (NCEP) 5 Reference Guidelines*: Low HDL: ..... < 40 mg/dL Normal: ..... 40-60 mg/dL Desirable: ... > 60 mg/dL *The National Cholesterol Education Program(NCEP) 6 Reference Guidelines*: Optimal:........... <100 mg/dL Near Optimal....... 100-129 mg/dL Borderline High.... 130-159 mg/dL High............... 160-189 mg/dL Very High.......... >=190 mg/dL * Source: National Cholesterol Education Program (NCEP) 7 Elevated levels of HbA1c suggest the need for more aggressive treatment of glycemia. The [place] Diabetes Association recommends that a primary goal of therapy should be a HbA1c of <7% and that physicians should re-evaluate the treatment regimen in patients with HbA1c values consistently >8%. 8 Vitamin D deficiency has been defined by the [place] of [employer] and an Endocrine Society practice guideline as a level of serum 25-OH vitamin D less than 20 ng/mL (1,2). The Endocrine Society went on to further define vitamin D insufficiency as a level between 21 and 29 ng/mL (2). 1. IOM ([place] of Medicine). 2010. Dietary reference intakes for calcium and D. [place]: The National Academies Press. 2. Frank MF, Desiree NC, Sanjeev-Jones MORAN, et al. Evaluation, treatment, and prevention of vitamin D deficiency: an Endocrine Society clinical practice guideline. JCEM. 2010; 96(7):1911-30. Performed at: RN - [facility] [address] [id number] Machine Shop Helper: Shelly Ponce MD, Phone: [phone] 9 r50.9 10 Positive: 5 of the following Borrelia-specific bands: 18,23,28,30,39,41,45,58, 66, and 93. Negative: No bands or banding patterns which do not meet positive criteria. 11 Note: An equivocal or positive EIA result followed by a negative Western Blot result is considered NEGATIVE. An equivocal or positive EIA result followed by a positive Western Blot is considered POSITIVE by the CDC. Positive: 2 of the following bands: 23,39 or 41 Negative: No bands or banding patterns which do not meet positive criteria. Criteria for positivity are those recommended by CDC/ASTPHLD. p23=Osp C, u94=dppdcgjed Note: Sera from individuals with the following may cross react in the [place] Western Blot assays: other spirochetal diseases (periodontal disease, leptospirosis, relapsing fever, yaws, and pinta); connective autoimmune (Rheumatoid Arthritis and Systemic Lupus Erythematosus and also individuals with Antinuclear Antibody); other infections ([place] Spotted Fever; Fay-Peoples Virus, and Cytomegalovirus). Performed at: [facility] [id number] Machine Shop Helper: Shelly Ponce MD, Phone: [phone] 12 Vitamin D deficiency has been defined by the [place] of [employer] and an Endocrine Society practice guideline as a level of serum 25-OH vitamin D less than 20 ng/mL (1,2). The Endocrine Society went on to further define vitamin D insufficiency as a level between 21 and 29 ng/mL (2). 1. IOM ([place] of [employer]). 2010. Dietary reference intakes for calcium and D. [place]: The National Academies Press. 2. Frank MF, Desiree NC, Ninfa MORAN, et al. Evaluation, treatment, and prevention of vitamin D deficiency: an Endocrine Society clinical practice guideline. JCEM. 2010; 96(7):1911-30. Performed at: - [facility] [id number] Machine Shop Helper: Shelly Ponce MD, Phone: [phone] 13 R94.5 14 Negative 0 - 19 Weak Positive 20 - 30 Moderate to Strong Positive >30 15 Negative 0 - 19 Weak Positive 20 - 30 Moderate to Strong Positive >30 16 Negative 0 - 3 Weak Positive 4 - 10 Positive >10 Tissue Transglutaminase (tTG) has been identified as the endomysial antigen. Studies have demonstr- ated that endomysial IgA antibodies have over 99% specificity for gluten sensitive enteropathy. 17 Negative 0 - 5 Weak Positive 6 - 9 Positive >9 18 Protein electrophoresis scan will follow via computer, mail, or esol instructor delivery. 19 The SPE pattern appears essentially unremarkable. Evidence of monoclonal protein is not apparent. 20 Negative 0 - 19 Weak positive 20 - 30 Moderate to strong positive >30 Actin Antibodies are found in 52-85% of patients with autoimmune hepatitis or chronic active hepatitis and in 22% of patients with primary biliary cirrhosis. 21 Negative 0.0 - 20.0 Equivocal 20.1 - 24.9 Positive >24.9 Mitochondrial (M2) Antibodies are found in 90-96% of patients with primary biliary cirrhosis. 22 Performed at: RN - [facility] [address] [id number] Machine Shop Helper: Shelly Ponce MD, Phone: [phone] Procedures Date Code Description Status 05/16/2018 01771 Colonoscopy With Biopsy Completed 02/09/2018 [id number] Mammogram Completed 01/25/2012 [id number] Colonoscopy Completed Medical Devices Description No Information Available Encounters Type Date Location Provider Dx Diagnosis Office Visit 09/23/2018 Podiatry Office Wilder Ball, L84 Corns and 8:00a DPM callosities M79.672 Pain in left foot M20.12 Hallux valgus (acquired), left foot M20.11 Hallux valgus (acquired), right foot M20.5x2 Other deformities of toe(s) (acquired), left foot M20.5x1 Other deformities of toe(s) (acquired), right foot Office Visit 07/19/2018 3:00p Primary Care Neda, H66.92 Otitis media, Office Ada, , unspecified, left [employer] PLANNING AIDE-C, CNM ear R50.9 Fever, unspecified Office Visit 07/08/2018 2:45p Primary Care Alexi, S50.871A Other superficial Office ZACK Moreland bite of right forearm, initial encounter W55.01xA Bitten by cat, initial encounter H66.92 Otitis media, unspecified, left ear Office Visit 07/04/2018 3:30p Primary Care Ada Red L84 Corns and Office MS, [employer] PLANNING AIDE-C, CNM callosities H66.92 Otitis media, unspecified, left ear R49.0 Dysphonia Assessments Date Code Description Provider 10/10/2018 E87.6 Hypokalemia Ada Red MS, [employer] PL[employer]ING AIDE-C, CNM 10/10/2018 E78.1 Pure hyperglyceridemia Ada Red MS, [employer] PL[employer]ING AIDE-C, CNM 10/10/2018 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 Ada Red MS, [employer] PL[employer]ING AIDE-C, CNM 10/10/2018 R94.5 Abnormal results of liver function Gagen, Ada, MS, studies [employer] AIDE-C, CN 10/10/2018 M54.5 Low back pain Ada Red, , [employer] PL[employer]ING AIDE-C, CN 10/10/2018 M79.671 Pain in right foot Ada Red, , [employer] AIDE-C, CN 09/23/2018 L84 Corns and callosities Wilder Ball, DPM 09/23/2018 M79.672 Pain in left foot Wilder Ball, DPM 09/23/2018 M20.12 Hallux valgus (acquired), left foot Wilder Ball, DPM 09/23/2018 M20.11 Hallux valgus (acquired), right foot Wilder Ball, DPM 09/23/2018 M20.5x2 Other deformities of toe(s) Wilder Ball DPBhavani (acquired), left foot 09/23/2018 M20.5x1 Other deformities of toe(s) Wilder Ball DPBhavani (acquired), right foot 07/19/2018 H66.92 Otitis media, unspecified, left ear Neda Ada, , [employer] AIDE-C, CN 07/19/2018 R50.9 Fever, unspecified NedaAda, MS, [employer] PL[employer]ING AIDE-C, [facility] 07/08/2018 S50.871A Other superficial bite of right Fern Truong PA forearm, initial encounter 07/08/2018 W55.01xA Bitten by cat, initial encounter Fern Truong PA 07/08/2018 H66.92 Otitis media, unspecified, left ear Fern Truong PA 07/04/2018 L84 Corns and callosities Casey Redqueline, MS, [employer] PL[employer]ING AIDE-C, CN 07/04/2018 H66.92 Otitis media, unspecified, left ear GagAda eubanks, MS, [employer] PL[employer]ING AIDE-C, CN 07/04/2018 R49.0 Dysphonia HoldenAda eubanks, MS, [employer] PL[employer] AIDE-C, CNM 05/16/2018 K57.30 Diverticulosis of large intestine Bart Cristina MD without perforation or abs 05/16/2018 K63.5 Polyp of colon Bart Cristina MD 05/16/2018 K62.89 Other specified diseases of anus and Bart Cristina MD rectum 05/16/2018 Z88.5 Allergy status to narcotic agent Bart Cristina MD status 05/16/2018 Z98.890 Other specified postprocedural states Bart Cristina MD Plan of Treatment No Information Available Functional Status Functional Condition Comment Date Status Glasses Active Independent with all ADL's Active Mental Status Description No Information Available Referrals Refer to Dr Reason for Referral Status Appt Date Wilder Carlson MD Is a Patient however they want new referral. Created Having lower back pain 10/11/18 faxed notes... LE 10/14/18 refaxed notes... LE 10/17/18 manually refaxed.. LE [address] [place] [address] [phone] Wilder Ball DPM callous on left foot Scheduled 09/23/2018 [address] [place] [address] [phone] Cy Humphries MD hoarse voice, throat discomfort "feels swollen" Scheduled 07/21/2018 [address] [place] [address] [phone]
--- OUTSIDE RECORDS SUMMARY | 2018-11-20 12:21 | XMS REPORT | Continuity of Care Document ---
:1960 External Reference #:[id number] Author Name Fern Truong PA Address [address] [place] [address] Care Team Providers Name Role Phone Maggie Leonard MD - Internal Medicine Care Team Information [employer] Wilder Carlson MD - Neurological Care Team Information [employer] Surgery Problems Active Problems Provider Date Neck [...] 11/24/2012 Palpitations Manas Wolff M.D., Onset: 07/20/2013 [facility] Arthralgia of the pelvic region and Manas Wolff M.D., Onset: [address] [facility] Social History Type Date Description Comments Sex Unknown Tobacco Use Start: Unknown Never Smoked Cigarettes Smokeless Tobacco Never Used Smokeless Tobacco ETOH Use Denies alcohol use Tobacco Use Start: Unknown Patient denies history of smoking Recreational Drug Use Denies Drug Use Smoking Status Reviewed: 11/04/18 Patient denies history of smoking Allergies, Adverse [...] Available Vital Signs Date Vital Result Comment 11/04/2018 10:09am BP Systolic Sitting Right Arm 142 mmHg BP Diastolic Sitting Right Arm 78 mmHg Body Temperature 97.0 F Heart Rate 67 /min Respiratory Rate 18 /min Height 62.25 inches 5'2.25" Weight 170.00 lb BMI (Body Mass Index) 30.8 kg/m2 BSA (Body Surface Area) 1.79 m2 [place] body weight in kilograms 50 kg O2 % BldC Oximetry 98 % 11/01/2018 4:16pm BP Systolic 147 mmHg BP Diastolic 92 mmHg Body Temperature 98.8 F Heart Rate 69 /min Height 62.25 inches 5'2.25" Weight 169.00 lb BMI (Body Mass Index) 30.7 kg/m2 BSA (Body Surface Area) 1.78 m2 [place] body weight in kilograms 50 kg O2 % BldC Oximetry 96 % Results Test Date Facility Test Result H/L Range Note CBC 10/03/2018 [facility] White Blood 7.1 K/uL Normal 3.1-10.7 1 W/Automated [address] [place] [place] [address] [phone] Red Blood Count 4.67 M/uL Normal 3.90-5.40 [...] 40.4-72.8 Lymph % 21.6 % Normal 20.0-42.0 Perry % 5.9 % Normal 4.3-13.2 Eo% 1.8 % Normal 0.0-6.6 Bas% 0.6 % Normal 0.0-1.1 Immature Grans 0.3 % Normal 0.0-5.0 NRBC % 0.0 /100WBC < 10/ 100 WBC Neut# 4.94 K/uL Normal 1.8-7.0 Lymph # 1.53 K/uL Normal 1.0-4.0 Perry # 0.42 K/uL Normal 0.3-0.9 Eos # 0.13 K/uL Normal 0.0-0.5 Baso # 0.04 K/uL Normal 0.0-0.1 Immature Grans Absolute 0.02 K/uL NRBC # 0.00 K/uL [facility] 10/03/2018 [facility] Glucose 95 mg/dL Normal 74-106 Metabolic Panel [address] [place] [address] [phone] BUN 13 mg/dL Normal 7-18 Creatinine 0.8 [...] U/L Normal 45-117 LDL Cholesterol Profile 10/03/2018 [facility] Cholesterol 159 mg/dL <[address] [place] [address] [phone] Triglycerides 181 mg/dL High <150 4 HDL Cholesterol 45 mg/dL >40 5 LDL-Cholesterol 78 mg/dL < 100 6 Glycohemoglobin 10/03/2018 [facility] Glycohemoglobin 5.7 % Normal 4.2-6.[address] (A1c) [place], [place] [id number] [phone] eAG 117 mg/dL Laboratory test 10/03/2018 [facility] Vitamin 55.3 30.0-100.0 [address] D,25-Hydroxy ng/[place] [address] [phone] Lyme Igg & Igm 07/27/2018 [facility] Lyme AB Igg By . 9 By Western Blot [address] [place] [address] [phone] P93 AB Absent . P66 AB Absent [...] Interpretation Negative . 11 TSH Reflex 07/27/2018 [facility] Thyroid Stim 1.21 uIU/mL Normal 0.30-4.20 FT4 And/Or [address] Hormone FT3 [place] [address] [phone] Reflex add FT3? Y Reflex add FT4? Y Laboratory test 07/27/2018 [facility] Vitamin 68.7 30.0-100.0 12 finding [address] José,25-Hydroxy ng/[place] [address] [phone] 1 NODX 2 Note: Persistent reduction for [...] for more aggressive treatment of glycemia. The [place] Diabetes Association recommends that a primary goal of therapy should be a HbA1c of <7% and that physicians should re-evaluate the treatment regimen in patients with HbA1c values consistently >8%. 8 Vitamin D deficiency has been defined by the [place] of [employer] and an Endocrine Society practice guideline as a level of serum 25-OH vitamin D less than 20 ng/mL (1,2). The Endocrine Society went on to further define vitamin D insufficiency as a level between 21 and 29 ng/mL (2). 1. IOM ([place] of Medicine). 2010. Dietary reference intakes for calcium and D. [place]: The National Academies Press. 2. Frank MF, Desiree MENDIOLA, Ninfa MORAN, et al. Evaluation, treatment, and prevention of vitamin D deficiency: an Endocrine Society clinical practice guideline. JCEM. 2010; 96(0):1911-30. Performed at: [facility] [employer] [address] [id number] Pul[employer] Mill Operator: Shelly Ponce MD, Phone: [phone] 9 J53.8 10 Positive: 5 of the following Borrelia-specific [...] are those recommended by CDC/ASTPHLD. p23=Osp C, l10=xnhpiphhd Note: Sera from individuals with the following may cross react in the Lyme Western Blot assays: other spirochetal diseases (periodontal disease, leptospirosis, relapsing fever, yaws, and pinta); connective autoimmune (Rheumatoid Arthritis and Systemic Lupus Erythematosus and also individuals with Antinuclear Antibody); other infections (Trafalgar Spotted Fever; Fay-Peoples Virus, and Cytomegalovirus). Performed at: [facility] [employer] [address] [employer] [id number] Pul[employer] Mill Operator: Shelly Ponce MD, Phone: [phone] Vitamin D deficiency has been defined by the [place] of [employer] and an Endocrine Society practice guideline as a level of serum 25-OH vitamin D less than 20 ng/mL (1,2). The Endocrine Society went on to further define vitamin D insufficiency as a level between 21 and 29 ng/mL (2). 1. IOM ([place] of [employer]). 2010. Dietary reference intakes for calcium and D. [place]: The National Academies Press. 2. Frank MF, Desiree MENDIOLA, Ninfa MORAN, et al. Evaluation, treatment, and prevention of vitamin D deficiency: an Endocrine Society clinical practice guideline. JCEM. 2010; 96(7):1911-30. 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 M20.11 Hallux valgus (acquired), right foot Office Visit 10/10/2018 3:30p Primary Care Ada Red, E87.6 Hypokalemia Office ANGELES TAM CNM E78.1 Pure hyperglyceridemia 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 R94.5 Abnormal results of liver function studies M54.5 Low back pain M79.671 Pain in right foot Office Visit 09/23/2018 8:00a Podiatry Office Wilder Ball, M79.672 Pain in left DPM foot L84 Corns and callosities M20.12 Hallux valgus (acquired), left foot M20.11 Hallux valgus (acquired), right foot M20.5x2 Other deformities of toe(s) (acquired), left foot M20.5x1 Other deformities of toe(s) (acquired), right foot Office Visit 07/19/2018 3:00p Primary Care Neda, H66.92 Otitis media, Office MS Ada, unspecified, left CLERK RATING-Jerry, CNM ear R50.9 Fever, unspecified Office Visit 07/08/2018 2:45p Primary Care Joanneumakrystin, S50.871A Other superficial Office ZACK [facility] bite of right forearm, initial encounter W55.01xA Bitten by cat, initial encounter H66.92 Otitis media, unspecified, left ear Office Visit 07/04/2018 3:30p Primary Care Stephanie Redline, L84 Corns and Office MS, CLERK RATING-C, CNM callosities H66.92 Otitis media, unspecified, left ear R49.0 Dysphonia Assessments Date Code Description Provider 11/04/2018 M54.5 Low back pain Fern Truong PA 11/01/2018 M72.2 Plantar fascial fibromatosis Wilder Ball, [facility] 11/01/2018 M20.11 Hallux valgus (acquired), right foot Wilder Ball, [facility] 10/10/2018 E87.6 Hypokalemia Casey Redqueline, MS, CLERK RATING-C, [facility] 10/10/2018 E78.1 Pure hyperglyceridemia Ada Red, MS, CLERK RATING-C, [facility] 10/10/2018 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 Ada Red, MS, CLERK RATING-C, [facility] 10/10/2018 R94.5 Abnormal results of liver function Ada Red, MS, studies CLERK RATING-C, [facility] 10/10/2018 M54.5 Low back pain Casey Redqueline, MS, CLERK RATING-C, [facility] 10/10/2018 M79.671 Pain in right foot Ada Red, MS, CLERK RATING-C, [facility] 09/23/2018 M79.672 Pain in left foot Quinn, Wilder, [facility] 09/23/2018 L84 Corns and callosities Wilder Ball DPM 09/23/2018 M20.12 Hallux valgus (acquired), left foot Wilder Ball DPM 09/23/2018 M20.11 Hallux valgus (acquired), right foot Wilder Ball DP 09/23/2018 M20.5x2 Other deformities of toe(s) Wilder Ball DPM (acquired), left foot 09/23/2018 M20.5x1 Other deformities of toe(s) Wilder Ball DPM (acquired), right foot 07/19/2018 H66.92 Otitis media, unspecified, left ear Gagcha, Ada, MS, CLERK RATING-C, CNM 07/19/2018 R50.9 Fever, unspecified Gagen, Ada, MS, CLERK RATING-C, CNM 07/08/2018 S50.871A Other superficial bite of right Fern Truong PA forearm, initial encounter 07/08/2018 W55.01xA Bitten by cat, initial encounter Fern Truong PA 07/08/2018 H66.92 Otitis media, unspecified, left ear Fern Truong PA 07/04/2018 L84 Corns and callosities Gagcha, Ada, MS, CLERK RATING-C, CNM 07/04/2018 H66.92 Otitis media, unspecified, left ear Gagen, Ada, MS, CLERK RATING-C, CNM 07/04/2018 R49.0 Dysphonia Gagcha, Ada, MS, CLERK RATING-C, CNM 05/16/2018 K57.30 Diverticulosis of large intestine Bart Cristina MD without perforation or abs 05/16/2018 K63.5 Polyp of colon Bart Cristina MD 05/16/2018 K62.89 Other specified diseases of anus and Bart Cristina MD rectum 05/16/2018 Z88.5 Allergy status to narcotic agent Bart Cristina MD status 05/16/2018 Z98.890 Other specified postprocedural states Bart Cristina MD Plan of Treatment 11/04/2018 - Fern Truong, PAM54.5 Low back painNew Xrays:MRI, Lumbar Spine, W/O Contrast, Ordered: 11/04/18Comments:Long history of back pain.s/p surgery in 2013 to alleviate numbness in right leg. Persistent pains left side of back.Will need to update MRIReferral back to Dr Carlson for evalReferral: Wilder Carlson MD, Surgery,NeurologicalFollow up:Follow-up as needed Functional Status Functional Condition Comment Date Status Glasses Active Independent with all ADL's Active Mental Status Description No Information Available Referrals Refer to Reason for Referral Status Appt Date Wilder Carlson MD Follow-up with Dr Carlson. Pt gave new address Created at [facility]. Lower back pain with occasional "radicular" symptoms L5 area. MRI pending. Eval and treat [address] [place] [address] [phone] Wilder Carlson MD Is a Patient however they want new referral. Created Having lower back pain 10/11/18 faxed notes... LE 10/14/18 refaxed notes... LE 10/17/18 manually refaxed.. LE 10/25/18 faxed notes to [facility] per patients request. [address] [place] [address] [phone] Wilder Ball DPM callous on left foot Scheduled 09/23/2018 [address] [place] [address] [phone] Cy Humphries MD hoarse voice, throat discomfort "feels swollen" Scheduled 07/21/2018 [address] [place] [address] [phone]
[2018-11-20 12:37] VITALS: BP 146/93
--- NOTE | 2018-11-20 12:46 | UC ---
Skin Complaint HPI - HPI Summary HPI Summary: 58 year old female presents with a complaint of a rash on her right breast, she thinks it ringworm. First noticed this morning. - History of Current Complaint Chief Complaint: UCSkin Time Seen by Provider: 11/20/18 12:38 Stated Complaint: SKIN Hx Obtained From: Patient Hx Last Menstrual Period: 10/13/16 Onset/Duration: Sudden Onset - Noted this morning. Pain Intensity: 0 - Allergy/Home Medications Allergies/Adverse Reactions: Allergies Allergy/AdvReac Type Severity Reaction Status Date / Time amoxicillin Allergy Severe GI Upset Verified 11/20/18 12:30 codeine AdvReac Unknown NOT Verified 11/20/18 12:30 EFFECTIVE Home Medications: Home Medications Multivitamins/Minerals TAB* [Theragran/minerals TAB*] 1 tab PO DAILY 11/20/18 [ History Confirmed 11/20/18] PMH/Surg Hx/FS Hx/Imm Hx Previously Healthy: Yes - Surgical History Surgical History: Yes Surgery Procedure, Year, and Place: x3; R lower leg; tubal ligation; hernia; LUMBAR SPINE FEB 2014;. RIGHT LEG REMOVED PART OF ADAMES - Family History Known Family History: Positive: Diabetes, Other - DIVERTICULAR DISEASE - Social History Alcohol Use: None Substance Use Type: None Smoking Status (MU): Never Smoked Tobacco - Immunization History Most Recent Influenza Vaccination: never Most Recent Tetanus Shot: UTD Most Recent Pneumonia Vaccination: never Vaccination Up to Date: Yes Review of Systems All Other Systems Reviewed And Are Negative: Yes Constitutional: Negative: Fever, Chills Skin: Positive: Rash - right breast Respiratory: Negative: Shortness Of Breath, Cough Cardiovascular: Negative: Palpitations, Chest Pain Gastrointestinal: Positive: Negative Genitourinary: Positive: Negative Is Patient Immunocompromised?: No Physical Exam Triage Information Reviewed: Yes Appearance: Well-Appearing Vital Signs: Initial Vital Signs Temp 97.8 F 11/20/18 12:31 Pulse 64 11/20/18 12:31 Resp 15 11/20/18 12:31 BP 146/93 11/20/18 12:31 Pulse Ox 98 11/20/18 12:31 Vital Signs Reviewed: Yes Eyes: Positive: Conjunctiva Clear ENT: Positive: Normal ENT inspection Respiratory: Positive: Lungs clear, Normal breath sounds Cardiovascular: Positive: RRR, No Murmur Skin: Positive: Rashes - Right breast, 2 cm x 1 cm erythematous, glaky rash medial of nipple. (*Nurse Nette Mejia was in room during breast exam.) Course/Dx - Differential Diagnoses - Skin Complaint Differential Diagnoses: Contact Dermatitis, Eczema - Diagnoses Provider Diagnosis: Ringworm of body Discharge ED - Sign-Out/Discharge Documenting (check all that apply): Patient Departure All imaging exams completed and their final reports reviewed: No Studies - Discharge Plan Condition: Stable Disposition: HOME Prescriptions: Terbinafine HCl [Antifungal] 15 gm TOPICAL BID PRN #15 cream..g. PRN Reason: Rash Referrals: Maggie Leonard MD [Primary Care Provider] - - Billing Disposition and Condition Condition: STABLE Disposition: Home
== END 2018-11-20 12:54 | disposition home or self-care (01) ==
LOC: UCCORT 11:59
DX: B35.4 Tinea corporis (principal); Z88.5 Allergy status to narcotic agent; Z88.0 Allergy status to penicillin
CPT/HCPCS: 99212; G0463